=== PATIENT | male | born 1990 | race Caucasian/White ===

== ENCOUNTER 2020-09-03 13:52 | Emergency (ER) | payer OTHER ==
[~2020-09-03] VITALS: Ht 177.8 cm; Wt 75.0 kg
[2020-09-03 15:40] VITALS: BP 122/74
== END 2020-09-03 15:40 | disposition home or self-care (01) ==
LOC: EMS 13:56
DX: S60.222A Contusion of left hand, initial encounter (principal); W22.8XXA Striking against or struck by other objects, initial encounter; Y93.89 Activity, other specified; Y92.89 Other specified places as the place of occurrence of the external cause; Y99.0 Civilian activity done for income or pay

== ENCOUNTER 2020-09-25 14:34 | Emergency (ER) | payer OTHER ==
[~2020-09-25] VITALS: Ht 177.8 cm; Wt 73.0 kg
[2020-09-25 14:50] VITALS: BP 130/73
[2020-09-25 16:17] LABS: COVID AG,FIA SOURCE NASOPHARYNGEAL
== END 2020-09-25 16:55 | disposition home or self-care (01) ==
LOC: EMS 14:37
DX: R05 Cough (principal); Z20.822 Contact with and (suspected) exposure to COVID-19
CPT/HCPCS: 71045; 87426; 99284; C9803; U0003

== ENCOUNTER 2022-04-09 12:29 | Emergency (ER) | payer OTHER ==
[~2022-04-09] VITALS: Ht 177.8 cm; Wt 77.3 kg
[2022-04-09 12:44] VITALS: BP 127/82
== END 2022-04-09 13:57 | disposition home or self-care (01) ==
LOC: EMS 12:31
DX: F32.9 Major depressive disorder, single episode, unspecified (principal); R45.851 Suicidal ideations
CPT/HCPCS: 99284; Z7502